=== PATIENT | female | born 1960 | race Caucasian/White ===

== ENCOUNTER → 2024-02-06 07:32 | Outpatient (REF) | payer MEDICARE, SELFPAY | LOC: WDC 07:32 | PROVIDERS: ATTENDING PHYSICIAN Obstetrics & Gynecology; FAMILY PHYSICIAN Internal Medicine | DX: Z78.0 Asymptomatic menopausal state (principal); Z12.31 Encounter for screening mammogram for malignant neoplasm of breast | CPT/HCPCS: 77063; 77067; 77080 ==

== ENCOUNTER → 2024-06-17 11:03 | Outpatient (REF) | payer MEDICARE, SELFPAY | LOC: RAD 11:03 | PROVIDERS: ATTENDING PHYSICIAN Internal Medicine | DX: R05.3 Chronic cough (principal) | CPT/HCPCS: 71046 ==

== ENCOUNTER → 2024-06-23 11:18 | Outpatient (REF) | payer MEDICARE, SELFPAY | LOC: RAD 11:18 | PROVIDERS: ATTENDING PHYSICIAN Internal Medicine Rheumatology; FAMILY PHYSICIAN Internal Medicine | DX: M54.9 Dorsalgia, unspecified (principal); M79.641 Pain in right hand; M79.642 Pain in left hand; M81.0 Age-related osteoporosis without current pathological fracture | CPT/HCPCS: 72072; 72100; 73130 ==

== ENCOUNTER → 2025-02-07 09:48 | Outpatient (REF) | payer MEDICARE, SELFPAY | LOC: WDC 09:48 | PROVIDERS: ATTENDING PHYSICIAN Internal Medicine | DX: Z12.31 Encounter for screening mammogram for malignant neoplasm of breast (principal) | CPT/HCPCS: 77063; 77067 ==